=== PATIENT | female | born 1950 | race Caucasian/White ===

== ENCOUNTER → 2021-01-14 | Outpatient (CLI) | payer OTHER ==
[2021-01-15 02:56] LABS: Egg White IgE <0.10 kU/L; Peanut IgE <0.10 kU/L; Soybean IgE <0.10 kU/L
[2021-01-17 14:34] LABS: Lettuce IgE Class CLASS 0
[2021-01-17 14:36] LABS: Green Bean IgE <0.10 kU/L (<0.10); Green Bean IgE Class CLASS 0; Mugwort IgE Class CLASS 0; Sweet Potato IgE <0.10 kU/L (<0.10); Sweet Potato IgE Class CLASS 0
== END | disposition home or self-care (01) ==
LOC: LABWHC1 10:25
PROVIDERS: ATTEND Allergy & Immunology
DX: K52.9 Noninfective gastroenteritis and colitis, unspecified (principal)
CPT/HCPCS: 36415; 82784; 83516; 86003

== ENCOUNTER → 2023-05-29 | Outpatient (CLI) | payer MEDICARE ==
[2023-05-29 11:16] LABS: INR 0.9 (<1.2); Partial Thromboplastin Time 26.5 sec (22.0-30.0)
--- NOTE | 2023-05-29 11:22 | XR ---
EXAMINATION TYPE: XR chest 2V DATE OF EXAM: 05/29/2023 COMPARISON: NONE HISTORY: Shortness of breath TECHNIQUE: Frontal and lateral views of the chest are obtained. FINDINGS: Scattered senescent parenchymal changes noted. Hyperinflation compatible with COPD. No evidence for infiltrate. No evidence for atelectasis. Heart size is stable. Mediastinal structures are stable and grossly unremarkable. No evidence for hilar prominence. Degenerative changes dorsal spine. IMPRESSION: 1. No evidence for acute pulmonary disease.
[2023-05-29 15:21] LABS: Appearance,Urine Clear (Clear); Bilirubin,Urine Negative (Negative); Blood,Urine Negative (Negative); Color,Urine Yellow (Yellow); Ketones,Urine Negative (Negative); Nitrite,Urine Negative (Negative); PH, Urine 6.5; Specific Gravity,Urine 1.005 (1.001-1.030); Urobilinogen,Urine 0.2 E.U./DL
[2023-05-29 16:43] LABS: Basophils # (A) 0.05 X 10*3/uL (0.00-0.10); Basophils % (A) 0.9 %; Eosinophils % (A) 1.8 %; HCT 41.4 % (37.2-46.3); HGB 13.5 d/dL (12.0-15.0); Lymphocytes # (A) 1.46 X 10*3/uL (0.90-5.00); MCH 29.8 pg (27.0-32.0); MCHC 32.6 d/dL (32.0-37.0); MCV 91.4 FL (80.0-97.0); Mean Platelet Volume 10.4 FL (9.5-12.2); Monocytes # (A) 0.44 X 10*3/uL (0.20-1.00); Monocytes % (A) 8.1 %; NRBC Per 100 WBC 0 X 10*3/uL (0.00-0.01); Neutrophils # (A) 3.35 X 10*3/uL (1.80-7.70); Platelet Count 257 X 10*3/uL (140-440); RBC 4.53 X 10*6/uL (4.10-5.20); RDW 12.3 % (11.5-14.5); WBC 5.41 X 10*3/uL (4.50-10.00)
[2023-05-29 16:52] LABS: BUN/Creat Ratio 22.86 Ratio (12.00-20.00); Calcium 9.4 mg/dL (8.7-10.3); Carbon Dioxide 25.2 mmol/L (21.6-31.8); Chloride 102 mmol/L (96-109); Glucose 88 mg/dL (70-110); Potassium 4.2 mmol/L (3.5-5.5); Sodium 140 mmol/L (135-145)
== END | disposition home or self-care (01) ==
LOC: LABWHC1 09:36
PROVIDERS: ATTEND Orthopaedic Surgery Orthopaedic Surgery of the Spine
DX: Z01.818 Encounter for other preprocedural examination (principal); M48.02 Spinal stenosis, cervical region
CPT/HCPCS: 36415; 71046; 80048; 81003; 85025; 85610; 85730

== ENCOUNTER → 2023-06-01 | Outpatient (CLI) | payer MEDICARE | END | disposition home or self-care (01) | LOC: LABWHC1 15:13 | PROVIDERS: ATTEND Orthopaedic Surgery Orthopaedic Surgery of the Spine | DX: Z53.9 Procedure and treatment not carried out, unspecified reason (principal) ==

== ENCOUNTER 2023-06-06 12:48 | Inpatient (IN) | payer MEDICARE ==
[~2023-06-06 12:48] MED LIST: ceFAZolin 1,000 MG in SODIUM CHLORIDE 0.9% IRRIGATIO 1,000 ML IRRIGATION PRN
[2023-06-06] MEDS ORDERED: ONDANSETRON 4 MG/2 ML VIAL ONE (14:07)
[2023-06-06] MEDS ORDERED: LACTATED RINGERS 1,000 ML IV ONE ×2 (14:09→16:39)
[2023-06-06] MEDS ORDERED: SUCCINYLCHOLINE CHLORIDE 200 MG/10 ML VIAL IV ONE (15:31)
[2023-06-06] MEDS ORDERED: PROPOFOL 10 MG/ML 20 ML VIAL IV ONE (15:31)
[2023-06-06] MEDS ORDERED: ROCURONIUM 10 MG/ML (5 ML VIAL) IV ONE (15:31)
[2023-06-06] MEDS ORDERED: MIDAZOLAM 2 MG/2 ML VIAL ONE (15:31)
[2023-06-06] MEDS ORDERED: fentaNYL (PF) 50 MCG/ML 2 ML AMP ONE (15:31)
[2023-06-06] MEDS ORDERED: DEXAMETHASONE SOD PHOSPHATE 4 MG/ML 1 ML VIAL ONE (15:31)
[2023-06-06] MEDS ORDERED: LIDOCAINE 0.5%-EPI 1:200,000 50 ML VIAL SQ ONE (16:01)
[2023-06-06] MEDS ORDERED: GELATIN SPONGE,ABSORB (LARGE) 1 EACH SPONGE TOPICAL ONE (16:05)
[2023-06-06] MEDS ORDERED: THROMBIN (BOVINE) 5,000 UNIT VIAL TOPICAL ONE (16:05)
[2023-06-06] MEDS ORDERED: BENZOCAINE/MENTHOL LOZENG 1 EACH LOZENGE MUCOUS MEM PRN (17:23)
[2023-06-06] MEDS ORDERED: SENNOSIDES-DOCUSATE SODIUM 1 EACH TAB PO PRN (17:23)
[2023-06-06] MEDS ORDERED: CYCLOBENZAPRINE 5 MG TAB PO PRN (17:23)
[2023-06-06] MEDS ORDERED: HYDROmorphone 0.5 MG/0.5 ML SYRINGE IVP PRN (17:23)
[2023-06-06] MEDS ORDERED: DENOSUMAB 60 MG/ML 1 ML SYRINGE SQ SCH (17:30)
--- NOTE | 2023-06-06 17:30 | P.OP ---
Date of Procedure: 06/06/23 Preoperative Diagnosis: Severe cervical stenosis C5 6 C6 7, cervical myelopathy, cervical myelomalacia, degenerative disc disease, lower extremity radiculopathy Postoperative Diagnosis: Same Anesthesia: GETA Pathology: none sent Condition: stable Disposition: PACU Description of Procedure: BRIEF OPERATIVE NOTE Preoperative Diagnosis:Severe cervical stenosis C5 6 C6 7, cervical myelopathy, cervical myelomalacia, degenerative disc disease, lower extremity radiculopathy Postoperative Diagnosis:Severe cervical stenosis C5 6 C6 7, cervical myelopathy, cervical myelomalacia, degenerative disc disease, lower extremity radiculopathy Procedure: Anterior cervical decompression with discectomy and fusion C5 6 C6 7 Placement of interbody graft C5 6 C6 7 Application of anterior cervical plate C5 6 and 7 Surgeon: Dr. Mondragon Strategy Lead: Luisito De La Vega is present throughout the entire the case persistence during positioning, dissection, exposure, visualization, and all crucial elements of the case as well as closure. Anesthesia: General anesthesia per Dr. Aguirre Estimated blood loss: Approximately 50 mL Complications: None apparent Components implanted: K2M striker Bath anterior cervical plate system with 6 screws and 2 Vikos interbody allograft bone graft and 1 mL of DBX bone putty Disposition: To recovery room in good stable condition. OPERATIVE INDICATIONS The patient has had long-standing issues in their neck and upper extremities. She is developing some worsening of her upper extremities noting some numbness tingling in her hands with dexterity changes in changes in her balance. She is having some worsening symptoms and had evaluation and was found have evidence of severe cervical stenosis at C5 6 and C6 7. She was having some evidence of myelopathy with some myelomalacia at her cervical spine. These correlated with her symptoms and with her severe stenosis we felt that she could be at risk for further myelopathy deterioration and worsening of her symptoms and potential cord damage further. The patient has been through conservative treatment. Given the severity of the stenosis and her evidence of myelopathy we felt that surgical intervention would be best option for her for decompression and stabilization. We discussed various treatment options including surgery, and the patient wishes to proceed with surgery We discussed the risk, patient's alternatives and benefits of surgery including but not limited to, risk of bleeding risk of infection, risk of need for further surgery, risk of decreased, loss of motion, muscle function, malunion nonunion, hardware failure, nerve damage, paralysis, heart attack, and . OPERATIVE SUMMARY After discussing all the risks, patient alternatives and benefits at length, the patient elected to proceed with surgical intervention, signed informed consent, and presented for their procedure. The patient was seen and examined in the [facility] and the surgical site was marked. The patient was given antibiotics and brought to the operating room. The patient was positioned on the operating room table in a supine position being careful to pad any bony prominences and pressure points. The patient was sedated and intubated by anesthesia in standard fashion. Once the airway and C- spine were stabilized the patient's arms were padded and tucked at her side, with her shoulders gently taped. The head was placed in a donut pad with the neck in good neutral alignment and position. We were careful to maintain the pa tient's cervical spine and good neutral alignment and position throughout. The patient was prepped and draped in a normal standard fashion. An appropriate timeout and keystone protocol performed. We were able to proceed with the surgery. The local wound area was infiltrated with local anesthetic. An incision was made transversely approximately 2-1/2 cm over the appropriate levels at C6. Dissection was taken down subcutaneously to the level of the platysma which was split in line with its fibers. Dissection was taken with a carotid approach, with the trachea and esophagus medial and the carotid sheath laterally. We dissected down to the anterior surface of the vertebral bodies. Intraoperative x-ray was taken which showed a marker at the appropriate level at C6 7. With the appropriate level positively confirmed, we were able to proceed with discectomy at the appropriate levels starting at C5 6 and then at C6 7. All of the operative levels were exposed appropriately. The patient had all their twitches back, and there was no evidence of recurrent laryngeal issue. The wound was copiously irrigated and suctioned dry as had been done periodically throughout the case. At the appropriate level/levels, starting at C5 6 and at C6 7 I established an annulotomy with an 11 blade scalpel. A discectomy was performed with a combination of pituitary rongeurs, curettes, a high-speed bur, and Kerrison rongeurs. The posterior longitudinal ligament was taken down as were any posterior osteophytes. There is severe stenosis at each level particularly at C5 6 with significant disc height loss. There is large posterior spurring at C5 6 which had been taken down as well. I had removed further bone at C6 at the superior aspect and at the inferior aspect during the decompressions to get further decompression behind the vertebral bodies well. This gave good central and bilateral foraminal decompression. I did not feel that we had to perform a full corpectomy. I felt I had good decompression centrally and at the bilateral neural foramen from C5 to C7. There is no evidence of any dural tear or leak. The endplates were prepared with a high- speed bur. With the endplates in good parallel position, I was able to size for the appropriate size interbody graft. The wound was irrigated and suctioned dry the graft was prepared and malleted into position. It had good alignment and position with the anterior surface flush with the anterior surface of the vertebral bodies. This was done similarly the appropriate levels. With the grafts intact, I was able to measure and contour and appropriate sized plate. The plate was positioned at the midline over the appropriate levels at C5 6 and 7. Screw holes were established with a hand drill and drill guide. Screws were placed in good alignment and position with excellent bony purchase. They were seated under the locking device. The construct was checked and found to be stable. Intraoperative x-ray was taken which showed good alignment and position of the implants at the appropriate levels. There was no evidence of any dural tear or leak. Good hemostasis was maintained. The wound was copiously irrigated and suctioned dry as had been done periodically throughout the case. The platysma was closed with absorbable suture. The subcutaneous tissue was closed. The subcuticular tissue was closed with absorbable suture. The wound was cleaned and dried and dressed appropriately. A soft cervical collar was placed appropriately. The patient was woken up by anesthesia, extubated, transferred back gently to their hospital bed and brought to the recovery room in good stable condition. The patient will be admitted to the hospital for appropriate postoperative care, medical management and monitoring. We will continue to follow them closely about the postoperative course.
--- NOTE | 2023-06-06 17:34 | XR ---
EXAMINATION TYPE: XR cervical spine 1V DATE OF EXAM: 06/06/2023 4:28 PM CLINICAL INDICATION:Female, 72 years old with history of Needle placement; H COMPARISON: None TECHNIQUE: The cervical spine was imaged in frontal, lateral, and odontoid. FINDINGS: Distal tip placed at the C6-C7 disc space. No evidence of fracture. There is multilevel degeneration changes spine. Findings are worse at C5-C6. Endotracheal tube in place. Patient temperature device pr esent. IMPRESSION: 1. No fracture or dislocation. 2. Needle placed at the C6-C7 disc space.
--- NOTE | 2023-06-06 17:35 | XR ---
EXAMINATION TYPE: XR cervical spine 1V DATE OF EXAM: 06/06/2023 5:25 PM CLINICAL INDICATION:Female, 72 years old with history of anterior cervical Fusion Hardware Placement; [facility] COMPARISON: Same day TECHNIQUE: The cervical spine was imaged in frontal, lateral, and odontoid. FINDINGS: Post fixation changes to C5-C6 and C7. Hardware appears intact. Endotracheal tube in place. The osseous structures show normal alignment without evidence of an acute fracture. No significant ve rtebral body osteophytes or facet joint arthropathy. The intervertebral disk spaces are preserved. Pe dicles are intact. Soft tissues are within normal limits. IMPRESSION: 1. Post surgical changes with hardware intact, No fracture or dislocation. 2. Mild degenerative disc disease changes of the cervical spine.
[2023-06-06] MEDS: SODIUM CHLORIDE 0.9% 1,000 ML IV SCH (18:44)
[2023-06-06] MEDS: HYDROcodone/APAP 5-325MG 1 EACH TAB PO PRN (19:30)
[2023-06-06] MEDS: ONDANSETRON 4 MG/2 ML VIAL IVP PRN (22:48)
[2023-06-07] MEDS: HYDROcodone/APAP 5-325MG 1 EACH TAB PO PRN ×2 (03:52→11:14)
[2023-06-07] MEDS: SODIUM CHLORIDE 0.9% 1,000 ML IV SCH (06:22)
[2023-06-07 07:57] VITALS: BP 103/45; PULSE 72; RESP 16; TEMP 98.4
[2023-06-07] MEDS ORDERED: FAMOTIDINE 20 MG TAB PO SCH (09:00)
[2023-06-07] MEDS ORDERED: CALCIUM CARB-VIT D 500 MG-5 MCG TAB PO SCH (09:00)
[2023-06-07] MEDS ORDERED: CYANOCOBALAMIN 500 MCG TAB PO SCH (09:00)
[2023-06-07] MEDS ORDERED: OLOPATADINE HCL BOTH EYES SCH (09:00)
--- NOTE | 2023-06-07 10:35 | P.DS ---
Providers Date of admission: 06/06/23 12:48 Attending physician: Marvin Mondragon Primary care physician: [facility] Course: The patient presented on the day of admission as per their operative note. She underwent anterior cervical decompression with discectomy and fusion C5 6 C6 7 for her severe stenosis and myelopathy at her upper extremities. She feels she is doing well. She feels her arms are doing well and her pain is controlled adequately. She has been able to train her room tolerating her soft diet Physical Exam The incision site is clean dry and intact. There is no erythema no drainage. There is no purulence no evidence of infection. Her neck is soft and supple. There is no drainage at all. There is no significant swelling Abdomen soft and nontender. Chest has good excursion with deep inspiration and expiration. The patient has active and passive range of motion intact at the upper and lower extremities. There is no acute change in neurologic status. She has good strength in bilateral upper extremities Hospital Course Postoperative day #1 status post anterior cervical decompression with discectomy and fusion C5 6 C6 7 for her severe cervical stenosis with upper extremity radiculopathy and myelopathy The patient has been making good progress postoperatively. She feels she is moving well and her arms are doing well. They have completed the prophylactic antibiotics without any signs or symptoms of infection. The patient has been able to advance their diet, and is tolerating diet adequately. The pain was initially controlled with IV medications and is now controlled appropriately with oral medications. The patient has been able to increase their mobilization. The patient has progressed appropriately. I think they are in good stable condition for discharge today. They will be sent home with appropriate prescriptions. I answered their questions to the best of my ability in a language that they can understand and they are agreeable with the plan. They will follow up as directed in approximately 2 weeks or sooner if any problems. Patient Condition at Discharge: Good Plan - Discharge Summary Discharge Rx Participant: Yes New Discharge Prescriptions: New HYDROcodone/APAP 5-325MG [Delaplaine 5-325] 1 tab PO Q6HR PRN 7 Days #28 tab PRN Reason: Pain No Action Olopatadine HCl [Pataday Once Daily Relief] 1 drop BOTH EYES DAILY Latanoprost [Latanoprost 0.005%] 1 drop BOTH EYES DAILY Famotidine [Pepcid] 20 mg PO QAM Cyanocobalamin (Vitamin B-12) [Vitamin B-12] 1 tab PO DAILY Denosumab [Prolia] 60 mg IM Q90D Baclofen 10 mg PO TID PRN PRN Reason: BACK SPASM Ergocalciferol [Vitamin D2 (1250 Mcg = 33568 Iu)] 1 cap PO Q14D Calcium Citrate/Vitamin D3 [Citracal + D Maximum Caplet] 4 tab PO DAILY Discharge Medication List Baclofen 10 mg PO TID PRN 06/01/23 [History] Calcium Citrate/Vitamin D3 [Citracal + D Maximum Caplet] 4 tab PO DAILY 06/01/23 [History] Cyanocobalamin (Vitamin B-12) [Vitamin B-12] 1 tab PO DAILY 06/01/23 [History] Denosumab [Prolia] 60 mg IM Q90D 06/01/23 [History] Ergocalciferol [Vitamin D2 (1250 Mcg = 82400 Iu)] 1 cap PO Q14D 06/01/23 [History] Famotidine [Pepcid] 20 mg PO QAM 06/01/23 [History] Latanoprost [Latanoprost 0.005%] 1 drop BOTH EYES DAILY 06/01/23 [History] Olopatadine HCl [Pataday Once Daily Relief] 1 drop BOTH EYES DAILY 06/01/23 [History] HYDROcodone/APAP 5-325MG [Delaplaine 5-325] 1 tab PO Q6HR PRN 7 Days #28 tab 06/07/23 [Rx] Follow up Appointment(s)/Referral(s): Marvin Mondragon, [Doctor of Osteopathic Medicine] - 2 Weeks (As scheduled or sooner if she is having any problems) Activity/Diet/Wound Care/Special Instructions: Keep site clean. May shower with waterproof Tegaderm intact. Do not soak in a tub. After 72 hours postoperatively, patient May remove dressing and then may shower with area uncovered. Leave glue intact and allow it to fray off on its own. May ambulate as tolerated. Avoid heavy or rigorous activity. No repetitive bending twisting or lifting. No overhead work. Discharge Disposition: HOME SELF-CARE
[2023-06-07] MEDS: ONDANSETRON 4 MG/2 ML VIAL IVP PRN (11:09)
[2023-06-07 12:54] VITALS: BMI 17.9
[2023-06-07] MEDS ORDERED: LATANOPROST 0.005% OPHTH DROPS 2.5 ML BTL BOTH EYES SCH (21:00)
[2023-06-13] MEDS ORDERED: ERGOCALCIFEROL 1,250 MCG (50,000 IU) CAPSULE PO SCH (09:00)
== END 2023-06-07 13:45 | disposition home or self-care (01) | DRG 29 ==
LOC: 2ORMAIN 12:48 → EDSTATUS 14:50 → 4SSUR 17:57
PROVIDERS: ADMIT Orthopaedic Surgery Orthopaedic Surgery of the Spine; ATTEND Orthopaedic Surgery Orthopaedic Surgery of the Spine
PROC: 0RG20A0 Fusion of 2 or more Cervical Vertebral Joints with Interbody Fusion Device, Anterior Approach, Anterior Column, Open Approach (ICD-10-PCS; 2023-06-06)
PROC: 0RT30ZZ Resection of Cervical Vertebral Disc, Open Approach (ICD-10-PCS; principal; 2023-06-06 14:50)
DX: G95.89 Other specified diseases of spinal cord (principal); M50.022 Cervical disc disorder at C5-C6 level with myelopathy; M46.02 Spinal enthesopathy, cervical region; M99.71 Connective tissue and disc stenosis of intervertebral foramina of cervical region; I34.0 Nonrheumatic mitral (valve) insufficiency; M48.02 Spinal stenosis, cervical region; M50.122 Cervical disc disorder at C5-C6 level with radiculopathy; M25.78 Osteophyte, vertebrae; G62.9 Polyneuropathy, unspecified; M43.12 Spondylolisthesis, cervical region; Z79.899 Other long term (current) drug therapy
CPT/HCPCS: 72020; 86850; 86870; 86880; 86900; 86901; 86902

== ENCOUNTER 2024-07-22 07:14 | Day surgery (SDC) | payer MEDICARE ==
[2024-07-18 16:16] VITALS: BMI 18.1
[~2024-07-22 07:14] MED LIST changes: +LIDOCAINE 1% (10MG/ML) FOR IV START INTRADERMA PRN; +ONDANSETRON 4 MG/2 ML VIAL IVP PRN; -ceFAZolin 1,000 MG in SODIUM CHLORIDE 0.9% IRRIGATIO 1,000 ML IRRIGATION PRN
[2024-07-22] MEDS: IV FLUID CONTINUATION 1,000 ML IV ONE (07:36)
[2024-07-22] MEDS: LACTATED RINGERS 1,000 ML IV SCH (07:37)
[2024-07-22 07:39] VITALS: TEMP 98.5
[2024-07-22] MEDS ORDERED: LIDOCAINE 1% INJ 10MG/ML (20 ML MDV) ONE (08:15)
[2024-07-22] MEDS ORDERED: PROPOFOL 10 MG/ML 20 ML VIAL IV ONE (08:15)
--- NOTE | 2024-07-22 08:48 | P.PCN ---
Date of Procedure: 07/22/24 Procedure(s) Performed: Brief history: Patient is a pleasant 74-year-old white female scheduled for an elective upper endoscopy as well as colonoscopy as a part of evaluation of remittent dysphagia to solids and screening for colon cancer/family history of colon cancer. Her father was diagnosed with colon cancer at age 54. Procedure performed: Esophagogastroduodenoscopy with balloon dilation Colonoscopy Preoperative diagnosis: GERD/intermittent dysphagia to solids Screening for colon cancer and family history of colon cancer Anesthesia: MAC Procedure: After informed consent was obtained from the patient was brought into the endoscopy unit and IV sedation was administered by anesthesia under continuous monitoring. Initially upper endoscopy was done. The Olympus GF 160 video endoscope was inserted inserted into the mouth and esophagus intubated without any difficulty and was gradually advanced into the stomach and duodenum and carefully examined. The bulb and second part of the duodenum appeared normal. The scope was then withdrawn into the stomach adequately insufflated with air an d upon careful examination the antrum and body, cardia and fundus appeared normal. The scope was then withdrawn into the esophagus. Small sliding-type hiatal hernia noted. The GE junction was located at 40 cm to the incisors. There was a distal esophageal Schatzki's ring identified and this was dilated using 15 and 16.5 mm TTS balloon in a sequential fashion for 60 seconds. There was some oozing identified and hence further dilation was not performed. There was a small mucosal tear noted at the site of dilation. Rest of the esophagus appeared normal. Patient tolerated the procedure well. At this time the patient continued to remain sedation. Initial digital rectal examination was normal. Olympus CF 160 video colonoscope was then inserted into the rectum and gradually advanced to the cecum without any difficulty. Careful examination was performed as the scope was gradually being withdrawn. The prep was excellent. The cecum, ascending colon, transverse colon, descending colon, sigmoid colon and rectum appeared normal. Retroflexion was performed in the rectum and no lesions were noted. Patient tolerated the procedure well. Impression: 1. Upper endoscopy revealed small hiatal hernia and distal esophageal Schatzki's ring status post balloon dilation using 15 and 16-1/2 TTS balloon as described above 2. Colonoscopy was within the limits with no evidence of colorectal neoplasia Recommendations: Findings of this examination were discussed with the patient as well as her family. She was advised to remain on clear liquids for 2 hours. Recommended repeat screening colonoscopy in 5 years because of the family history of colon cancer
[2024-07-22 09:13] VITALS: BP 119/68; PULSE 70; RESP 20
== END 2024-07-22 09:49 | disposition home or self-care (01) ==
LOC: ORWHC2ENDO 07:14
PROVIDERS: ATTEND Internal Medicine Gastroenterology
DX: Z12.11 Encounter for screening for malignant neoplasm of colon (principal); K22.2 Esophageal obstruction; K21.9 Gastro-esophageal reflux disease without esophagitis; I34.1 Nonrheumatic mitral (valve) prolapse; G43.909 Migraine, unspecified, not intractable, without status migrainosus; K44.9 Diaphragmatic hernia without obstruction or gangrene; Z80.0 Family history of malignant neoplasm of digestive organs; Z88.8 Allergy status to other drugs, medicaments and biological substances; Z79.899 Other long term (current) drug therapy
CPT/HCPCS: 43249; J2003; J2704; C1726; G0105

== ENCOUNTER → 2025-01-21 | Outpatient (CLI) | payer MEDICARE ==
--- NOTE | 2025-01-21 15:02 | US ---
EXAMINATION TYPE: US extremity nonvasc mass LT DATE OF EXAM: 01/21/2025 COMPARISON: NONE CLINICAL INDICATION: Female, 74 years old with history of LEFT LEG D17.24 BENIGN LIPOMATOUS NEOPLASM OF SKIN; Palpable lateral left mid thigh x 1 month. TECHNIQUE: Sonographic images taken. FINDINGS: Circular anechoic nonvascular lesion seen - 0.6 x 0.5 x 0.5 cm IMPRESSION: Small benign-appearing subcutaneous thin-walled 6 mm cyst identified at area of clinical concern. Advise repeat imaging if area is felt to enlarge or becomes painful. [facility], , 01/21/2025 2:59 PM
== END | disposition home or self-care (01) ==
LOC: RADUSWWP 14:12
PROVIDERS: ATTEND Dermatology MOHS-Micrographic Surgery
DX: D17.24 Benign lipomatous neoplasm of skin and subcutaneous tissue of left leg (principal)